=== PATIENT | female | born 1995 | race American Indian/Alaskan Native ===

== ENCOUNTER 2019-09-01 22:19 | Emergency (ER) | payer SELFPAY ==
[2019-09-01 23:00] LABS: Basophils % (Auto) 0.7 % (0.0-1.8); Eosinophils # (Auto) 0.1 K/mm3 (0.0-0.4); Hematocrit 33.4 % (30.3-42.9); Hemoglobin 11.4 gm/dl (10.1-14.3); Lymphocytes # (Auto) 1.4 K/mm3 (1.2-5.4); Lymphocytes % (Auto) 20.4 % (13.4-35.0); Mean Corpuscular HGB Conc 34 % (30-34); Mean Corpuscular Volume 90 fl (79-97); Monocytes # (Auto) 0.5 K/mm3 (0.0-0.8); Monocytes % (Auto) 6.5 % (0.0-7.3); Platelet Count 247 K/mm3 (140-440); Red Blood Count 3.72 M/mm3 (3.65-5.03); Red Cell Distribution Width 13.3 % (13.2-15.2)
[2019-09-01 23:26] LABS: Alanine Aminotransferase 16 units/L (7-56); Albumin 3.6 g/dL (3.9-5); BUN/Creatinine Ratio 17; Blood Urea Nitrogen 15 mg/dL (7-17); Calcium 9.4 mg/dL (8.4-10.2); Hemolysis Index 1
[2019-09-01 23:28] LABS: Bilirubin,Direct < 0.2 mg/dL (0-0.2)
[2019-09-01] MEDS ORDERED: ACETAMINOPHEN 325 MG TAB PO ONE (23:35)
--- NOTE | 2019-09-01 23:57 | Emergency Department Report ---
HPI - General Chief Complaint: Abdominal Pain Time Seen by Provider: 09/01/19 22:37 - HPI HPI: 24-year-old -[place] female presents to the emergency department with complaint of pain to the right upper quadrant and epigastric abdomen that started this evening and woke her from sleep. She denies any fever, nausea, vomiting, dysuria, vaginal bleeding or discharge. She has not taken anything for symptoms prior to presentation. The patient just gave via about 1 week ago at [facility]. The patient presents to the emergency department with her 7-day-old without anybody else to watch the baby. ED Past Medical Hx - Past Medical History Previous Medical History?: Yes Hx Hypertension: Yes (gestational; non compliant) Hx Arthritis: No - Surgical History Past Surgical History?: No Additional Surgical History: c section 7 days ago - Social History Smoking Status: Unknown if ever smoked Substance Use Type: None - Medications Home Medications: Home Medications Medication Instructions Recorded Confirmed Last Taken Type Ondansetron [Zofran Odt] 4 mg PO Q8HR PRN #12 tab.rapdis 09/02/19 Unknown Rx ED Review of Systems ROS: Stated complaint: ABDOMINAL PAIN Other details as noted in HPI Comment: All other systems reviewed and negative Constitutional: denies: chills, fever Respiratory: denies: cough, wheezing Cardiovascular: denies: chest pain, palpitations Gastrointestinal: abdominal pain. denies: nausea, vomiting Genitourinary: denies: dysuria, discharge Musculoskeletal: denies: back pain, arthralgia Neurological: denies: headache, weakness Physical Exam - Physical Exam Vital Signs: Vital Signs 09/01/19 09/01/19 22:21 23:45 Temperature 98.9 F Pulse Rate 79 Respiratory 16 18 Rate Blood Pressure 150/90 O2 Sat by Pulse 98 Oximetry Physical Exam: GENERAL: The patient is well-developed well-nourished. HENT: Normocephalic. Atraumatic. Patient has moist mucous membranes. EYES: Extraocular motions are intact. NECK: Supple. Trachea is midline. CHEST/LUNGS: Clear to auscultation. There is no respiratory distress noted. HEART/CARDIOVASCULAR: Regular. There is no tachycardia. ABDOMEN: Abdomen is soft. There is right upper quadrant abdominal and epigastric tenderness to palpation. No guarding. Patient has normal bowel sounds. There is no abdominal distention. SKIN: Skin is warm and dry. NEURO: The patient is awake, alert, and oriented. The patient is cooperative. The patient has no focal neurologic deficits. Normal speech. MUSCULOSKELETAL: There is no tenderness or deformity. There is no evidence of acute injury. ED Course Vital Signs 09/01/19 09/01/19 22:21 23:45 Temperature 98.9 F Pulse Rate 79 Respiratory 16 18 Rate Blood Pressure 150/90 O2 Sat by Pulse 98 Oximetry ED Medical Decision Making - Lab Data Result diagrams: 09/01/19 22:46 09/01/19 22:46 - Radiology Data Radiology results: report reviewed LIMITED RUQ ABDOMINAL ULTRASOUND INDICATION: Upper abd pain. COMPARISON: No relevant prior imaging study available. FINDINGS: Pancreas: Visualized portions show no significant abnormality. Abdominal Aorta: Cannot be visualized. IVC: Not visualized. Liver: Slightly increased echogenicity suggesting fatty in filtration.. Gallbladder: No evidence of cholelithiasis.. Sonographic Valenzuela's sign: Not performed. Bile ducts: Normal. Common bile duct measures 5 mm. Free fluid: None. Additional Findings: None. IMPRESSION: 1. Fatty liver. 2. No acute findings. - Medical Decision Making This patient presents to the emergency department with complaint of some right upper quadrant and epigastric abdominal pain that started earlier this evening. It is associated with some nausea without vomiting. On examination the patient has some reproducible tenderness to palpation to the right upper quadrant and epigastrium. Vital signs stable throughout her ED course thus far including being afebrile. Labs have been unremarkable including CBC, metabolic panel, lipase. Abdominal ultrasound shows a fatty liver but otherwise there are no acute findings. It is my intention to get an abdominal x-ray and more than likely a CT scan of the abdomen and pelvis to further evaluate this patient's postoperative abdominal pain. However she has presented here with her 7-day-old . The patient says that there is absolutely nobody who can help take care of this child while she gets further evaluation of her abdominal pain. We are unwilling to expose this to any radiation, and therefore we are unable to do x-rays or CT imaging for the patient at this time. From the vital signs we have obtained, the labs that have resulted, and the ultrasound imaging, everything thus far has come back within normal limits and so far the patient does not appear to have any emergent medical condition. Patient was given some Tylenol for her discomfort. It did help slightly. The patient also has been unable to fill any of her medications that were prescribed after the delivery because she does not own a car and is unable to get to a pharmacy to fill her prescriptions. The patient is more than welcome to remain in the emergency department at this time until she feels more comfortable, or until she is able to find someone that she trusts to assist with babysitting or childcare. However the patient says that she would rather be discharged home. She has been instructed to follow-up with her CQ DEVELOPER. She has also been instructed to return to the closest emergency department with any worsening of her symptoms or with any acute distress. She understands and agrees to the plan. Critical Care Time: No Critical care attestation.: If time is entered above; I have spent that time in minutes in the direct care of this critically ill patient, excluding procedure time. ED Disposition Clinical Impression: Upper abdominal pain Disposition: - TO HOME OR SELFCARE Is pt being admited?: No Condition: Stable Instructions: Abdominal Pain (ED) Additional Instructions: Please follow-up with a primary care physician in the next few days. Please follow-up with your CQ DEVELOPER. Return to the closest emergency department with any worsening of your symptoms or any acute distress. Prescriptions: Ondansetron [Zofran Odt] 4 mg PO Q8HR PRN #12 tab.rapdis PRN Reason: Nausea Referrals: PRIMARY CARE, [Primary Care Provider] - 2-3 Days Time of Disposition: 01:08
--- NOTE | 2019-09-02 00:53 | Ultrasound Report ---
LIMITED RUQ ABDOMINAL ULTRASOUND INDICATION: Upper abd pain. COMPARISON: No relevant prior imaging study available. FINDINGS: Pancreas: Visualized portions show no significant abnormality. Abdominal Aorta: Cannot be visualized. IVC: Not visualized. Liver: Slightly increased echogenicity suggesting fatty infiltration.. Gallbladder: No evidence of cholelithiasis.. Sonographic Valenzuela's sign: Not performed. Bile ducts: Normal. Common bile duct measures 5 mm. Free fluid: None. Additional Findings: None. IMPRESSION: 1. Fatty liver. 2. No acute findings. Signer Name: Kalen Abdullahi MD Signed: 09/02/2019 12:48 AM Workstation Name: [id number]
[2019-09-02] MEDS ORDERED: ONDANSETRON 4 MG ODT TAB PO ONE (00:56)
[2019-09-02 01:47] VITALS: BP 134/75
== END 2019-09-02 01:15 | disposition home or self-care (01) ==
LOC: ED 22:19
DX: R10.11 Right upper quadrant pain (principal); R10.13 Epigastric pain; I10 Essential (primary) hypertension; Z98.890 Other specified postprocedural states
CPT/HCPCS: 36415; 76705; 80048; 80076; 83690; 85025; Q0162